=== PATIENT | male | born 1975 | race Caucasian/White ===

== ENCOUNTER 2017-10-28 13:34 | Emergency (ER) | payer OTHER ==
[~2017-10-28] VITALS: Ht 180.3 cm; Wt 92.5 kg
[2017-10-28] MEDS ORDERED: ENALAPRIL-HCTZ1 EACH (14:21)
== END 2017-10-28 20:30 | disposition home or self-care (01) ==
LOC: ER 13:34
DX: R10.84 Generalized abdominal pain (principal); I10 Essential (primary) hypertension

== ENCOUNTER 2017-11-16 05:57 | Emergency (ER) | payer OTHER ==
[~2017-11-16] VITALS: Ht 180.3 cm; Wt 88.9 kg
[~2017-11-16 05:57] MED LIST: ENALAPRIL-HCTZ1 EACH
[2017-11-16] MEDS ORDERED: KETO10TA2 PO (08:34)
[2017-11-16] MEDS ORDERED: NORFLEX100MG PO (08:34)
== END 2017-11-16 08:41 | disposition home or self-care (01) ==
LOC: ER 05:57 → EDBD 06:15 → ER 08:41
DX: M54.5 Low back pain (principal)

== ENCOUNTER 2017-11-21 08:13 | Outpatient (CLI) | payer OTHER ==
[~2017-11-21 08:13] MED LIST changes: +KETO10TA2 PO; +NORFLEX100MG PO
== END 2017-11-21 08:25 | disposition home or self-care (01) ==
LOC: LAB 08:13
DX: I10 Essential (primary) hypertension (principal); M54.5 Low back pain

== ENCOUNTER 2021-06-24 00:29 | Emergency (ER) | payer OTHER ==
[~2021-06-24] VITALS: Ht 182.9 cm; Wt 104.3 kg
[2021-06-24] MEDS ORDERED: KETO10TA2 PO (04:29)
[2021-06-24] MEDS ORDERED: NORFLEX100MG PO (04:29)
== END 2021-06-24 04:37 | disposition home or self-care (01) ==
LOC: ER 00:29
DX: M54.59 Other low back pain (principal); I10 Essential (primary) hypertension

== ENCOUNTER 2021-09-21 23:46 | Emergency (ER) | payer OTHER ==
[~2021-09-21] VITALS: Ht 180.3 cm; Wt 91.6 kg
[2021-09-22] MEDS ORDERED: ENALAPRIL-HCTZ1 EACH (00:08)
[2021-09-22] MEDS ORDERED: KETO10TA2 PO (03:59)
== END 2021-09-22 04:10 | disposition home or self-care (01) ==
LOC: ER 23:46
DX: M25.552 Pain in left hip (principal)

== ENCOUNTER 2021-09-26 20:50 | Emergency (ER) | payer OTHER ==
[~2021-09-26] VITALS: Ht 180.3 cm; Wt 91.6 kg
== END 2021-09-26 23:48 | disposition home or self-care (01) ==
LOC: ER 20:50
DX: M77.8 Other enthesopathies, not elsewhere classified (principal)

== ENCOUNTER → 2023-08-25 | Emergency (ER) | payer OTHER ==
[~2023-08-25] VITALS: Ht 180.3 cm; Wt 99.8 kg
== END | disposition left against medical advice (07) ==
LOC: ER 22:35
DX: Z53.21 Procedure and treatment not carried out due to patient leaving prior to being seen by health care provider (principal)